=== PATIENT | female | born 1985 | race Caucasian/White ===

== ENCOUNTER 2017-03-13 14:31 | Emergency (ER) | payer MEDICAID ==
[~2017-03-13] VITALS: Ht 165.1 cm; Wt 56.7 kg
--- NOTE | 2017-03-13 14:31 | NUR ---
Patient was BIBA and taken to bed 03 via gurney per EMS.
[2017-03-13 14:45] VITALS: BP 122/74
[2017-03-13] MEDS ORDERED: HYDR-4446 PO (14:54)
[2017-03-13] MEDS ORDERED: IBUP-2213 PO (14:54)
[2017-03-13] MEDS ORDERED: NACL 0.9% 1,000 ML IV SCH (15:03)
[2017-03-13] MEDS ORDERED: ONDANSETRON 4 MG/2 ML VIAL IVP ONE (15:05)
--- NOTE | 2017-03-13 15:05 | NUR ---
Dr. Tsang evaluating patient at bedside.
--- NOTE | 2017-03-13 15:10 | NUR ---
32/F BIBA TO ED WITH C/O EPIGASTRIC PAIN STARTING THIS MORNING AFTER EATING. PT STATES SHE HAD N/V. DENIES DIARRHEA. PAIN 04/10. PT WAS DICHARGED FROM [place] THIS MORNING. BOWEL SOUNDS PRESENT X4Q. LUNGS CLEAR BILAT. HR EVEN AND REGULAR. AAOX4. VSS. NO SIGNS OF DISTRESS.
--- NOTE | 2017-03-13 15:13 | NUR ---
LAB AT BEDSIDE.
[2017-03-13 15:20] LABS: EOSINOPHILS # (AUTO) 0.2 K/uL (0-0.4); HEMOGLOBIN 13.1 g/dL (12.0-16.0); MEAN CORPUSCULAR HGB CONC 33 g/dL (33-37); MONOCYTES # (AUTO) 0.4 K/uL (0.8-1.0); RED BLOOD CELL COUNT(AUTO) 4.53 MIL/uL (4.20-5.40)
[2017-03-13 15:22] LABS: BASOPHILS # (AUTO) 0.2 K/uL (0.00-0.22); BASOPHILS % (AUTO) 2.2 % (0.0-2.0); EOSINOPHILS % (AUTO) 2.1 % (0.0-4.0); HEMATOCRIT 39.3 % (36-48); LYMPHOCYTES # (AUTO) 0.4 K/uL (2.5-16.5); LYMPHOCYTES % (AUTO) 4.1 % (20.5-51.1); MEAN CORPUSCULAR HEMOGLOBIN 29 pg (27-31); MEAN CORPUSCULAR VOLUME 87 fL (80-94); MONOCYTES % (AUTO) 4.2 % (1.7-9.3); NEUTROPHILS # (AUTO) 7.9 K/uL (1.8-7.7); NEUTROPHILS % (AUTO) 87.4 % (42.2-75.2); PLATELET COUNT (AUTO) 132 K/uL (140-450); RED CELL DISTRIBUTION WIDTH 13.2 % (11.6-13.7); WHITE BLOOD COUNT (AUTO) 9.1 K/uL (4.8-10.8)
[2017-03-13 15:33] LABS: ANION GAP 12.2 (8-16); CALCIUM 8.9 mg/dL (8.5-10.1); CARBON DIOXIDE 26.5 mmol/L (21-32); CREATININE 0.7 mg/dL (0.6-1.3); POTASSIUM 3.7 mmol/L (3.5-5.1)
[2017-03-13] MEDS ORDERED: FAMOTIDINE 20 MG/2 ML VIAL IVP ONE (15:35)
[2017-03-13 15:39] LABS: ALBUMIN 3.8 g/dL (3.4-5.0); TOTAL BILIRUBIN 0.5 mg/dL (0.0-1.0); TOTAL PROTEIN, SERUM 7.4 g/dL (6.4-8.2)
[2017-03-13] MEDS ORDERED: HYDROmorphone 1 MG/ML AMP IVP ONE (16:15)
--- NOTE | 2017-03-13 16:30 | NUR ---
Patient appears to be resting comfortably in bed. Vital Signs within normal limits. Respirations even and unlabored.
[2017-03-13 16:35] LABS: APPEARANCE,URINE HAZY (CLEAR); BILIRUBIN,URINE NEGATIVE (NEGATIVE); BLOOD, URINE 1+ (NEGATIVE); COLOR,URINE YELLOW (YELLOW); LEUKOCYTE ESTERASE ,URINE NEGATIVE (NEGATIVE); NITRITE, URINE NEGATIVE (NEGATIVE); PROTEIN,URINE NEGATIVE (NEGATIVE); UGLUCOSE NEGATIVE (NEGATIVE); UROBILINOGEN,URINE 0.2 EU/dL (0.2 - 1)
[2017-03-13 16:41] LABS: BACTERIA,URINE 1-9 (FEW) /HPF (None Seen); RBC,URINE 3-10 (FEW) /HPF (0-5)
[2017-03-13 17:22] VITALS: BP 125/79
== END 2017-03-13 17:22 | disposition home or self-care (01) ==
LOC: MED 14:31
DX: R10.13 Epigastric pain (principal)
CPT/HCPCS: 36415; 76700; 80053; 81001; 81025; 82150; 83690; 85025; 96361; 96374; 96375; 99285; J1170; J2405; J3490; J7030